=== PATIENT | male | born 1980 | race Caucasian/White ===

== ENCOUNTER 2021-08-05 01:43 | Emergency (ER) | payer BC ==
[2021-08-05] VITALS (9 sets, daily range): BP systolic 143–167; BP diastolic 86–108
[~2021-08-05] VITALS: Ht 175.3 cm; Wt 95.5 kg
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
[2021-08-05 02:25] LABS: BASO # 0.1 x10^3/uL (0.0-0.2); BASO % 1 % (0-3); EOS # 0.1 x10^3/uL (0.0-0.7); EOS % 1 % (0-3); HEMATOCRIT 44.1 % (39.0-53.0); HEMOGLOBIN 15.3 g/dL (13.0-17.5); LYMPH # 3.1 x10^3/uL (1.0-4.8); LYMPH % 27 % (24-48); MEAN CORPUSCULAR HEMOGLOBIN 33 pg (25-35); MEAN CORPUSCULAR HGB CONC 35 g/dL (31-37); MEAN CORPUSCULAR VOLUME 93 fL (79-100); MONO # 0.5 x10^3/uL (0.0-1.1); MONO % 4 % (0-9); NEUT # 7.7 x10^3/uL (1.8-7.7); NEUT % 67 % (31-73); PLATELET COUNT 293 x10^3/uL (140-400); RED BLOOD COUNT 4.72 x10^6/uL (4.30-5.70); RED CELL DISTRIBUTION WIDTH 13.4 % (11.5-14.5); WHITE BLOOD COUNT 11.5 x10^3/uL (4.0-11.0)
[2021-08-05] MEDS ORDERED: ACETAMINOPHEN 500 MG TABLET PO ONE ×3 (02:30→21:30)
[2021-08-05 02:36] LABS: CALCIUM 8.9 mg/dL (8.5-10.1); GFR 82.8; POTASSIUM 3.9 mmol/L (3.5-5.1)
[2021-08-05 02:41] LABS: ALBUMIN 4.1 g/dL (3.4-5.0); ALBUMIN/GLOBULIN RATIO 1.3 (1.0-1.7); TOTAL BILIRUBIN 0.2 mg/dL (0.2-1.0); TOTAL PROTEIN 7.3 g/dL (6.4-8.2)
[2021-08-05 02:50] LABS: BILIRUBIN,URINE NEGATIVE (NEG); CLARITY,URINE CLEAR; COLOR,URINE YELLOW; NITRITE,URINE NEGATIVE (NEG); PROTEIN,URINE 30 mg/dL (NEG-TRACE); UROBILINOGEN,URINE 0.2 mg/dL (0.2 mg/dL)
[2021-08-05 02:54] LABS: BARBITURATES NEG (NEG); BENZODIAZEPINES POS (NEG); CANNABINOIDS NEG (NEG); COCAINE NEG (NEG); METHADONE NEG (NEG); OPIATES NEG (NEG); PHENCYCLIDINE NEG (NEG)
[2021-08-05 02:55] LABS: AMPHETAMINE/METHAMPHETAMINE NEG (NEG)
[2021-08-05 02:58] LABS: ACETAMIN < 2 mcg/ml (10-30); ETHANOL 129 mg/dL (0-10); SALIC < 2.8 mg/dL (2.8-20.0)
[2021-08-05 03:01] LABS: RBC,URINE 0 /HPF (0-2); WBC,URINE 0 /HPF (0-4)
[2021-08-05 03:02] LABS: BACTERIA,URINE 0 /HPF (0-FEW)
[2021-08-05] MEDS ORDERED: IBUPROFEN 200 MG TABLET. PO ONE (04:30)
[2021-08-05] MEDS ORDERED: KETAMINE HCL IN NACL, ISO-OSM 50 MG/5 ML SYRINGE ONE (05:10)
[2021-08-05] MEDS ORDERED: cloNIDine HCL 0.1 MG TABLET PO ONE (07:00)
[2021-08-05] MEDS ORDERED: ALPRAZolam 0.5 MG TABLET PO ONE (13:00)
[2021-08-05] MEDS ORDERED: LIDO:MAALOX 1:1 20 ML SINGLE DOSE. SWSW ONE (13:30)
[2021-08-05] MEDS ORDERED: clonazePAM 0.5 MG TABLET PO ONE (20:15)
== END 2021-08-05 21:44 ==
LOC: ER 01:43
DX: R45.6 Violent behavior (principal); F41.9 Anxiety disorder, unspecified; F32.9 Major depressive disorder, single episode, unspecified; R45.851 Suicidal ideations; Z20.822 Contact with and (suspected) exposure to COVID-19
CPT/HCPCS: 36415; 80053; 80307; 80329; 81001; 84484; 85025; 87426; 93005; 99285; G0480; U0003; U0005